=== PATIENT | female | born 1980 | race American Indian/Alaskan Native ===

== ENCOUNTER 2017-04-01 23:59 | Emergency (ER) | payer MEDICAID, OTHER ==
[2017-04-02] MEDS ORDERED: ASPIRIN PO ONE (01:40)
[2017-04-02 02:15] LABS: Hematocrit 38.4 % (30.3-42.9); Mean Corpuscular HGB Conc 34 % (30-34); Mean Corpuscular Hemoglobin 33 pg (28-32); Mean Corpuscular Volume 96 fl (79-97); Platelet Count 234 K/mm3 (140-440); Red Blood Count 3.98 M/mm3 (3.65-5.03); Red Cell Distribution Width 12.6 % (13.2-15.2)
[2017-04-02 02:16] LABS: BUN/Creatinine Ratio 10; Blood Urea Nitrogen 7 mg/dL (7-17); Calcium 8.3 mg/dL (8.4-10.2); Hemolysis Index 5
[2017-04-02 03:34] LABS: HCG Qualitative,Urine Negative (Negative)
[2017-04-02 03:37] LABS: Bilirubin,Urine NEG (Negative); Blood,Urine MOD (Negative); Color,Urine Yellow (Yellow); Mucus,Urine FEW /HPF; Protein,Urine <15 mg/dL mg/dL (Negative)
--- NOTE | 2017-04-02 04:00 | XRay Report ---
FINAL REPORT PROCEDURE: XR CHEST ROUTINE 2V TECHNIQUE: PA and lateral chest radiographs were obtained. CPT 23627 HISTORY: chest pain COMPARISON: No prior studies are available for comparison. FINDINGS: Heart: Normal. Mediastinum/Vessels: Normal. Lungs/Pleural space: Normal. Bony thorax: No acute osseous abnormality. Other: IMPRESSION: Normal examination.
[2017-04-02 04:10] LABS: Basophils % (Manual) 0 % (0.0-1.8); Total Cells Counted 100
[2017-04-02 04:11] LABS: Anisocytosis 1+; Platelet Estimate Consistent w Auto
--- NOTE | 2017-04-02 04:39 | Emergency Department Report ---
ED Chest Pain HPI - General Chief Complaint: Chest Pain Stated Complaint: SOB,LEFT ARM,LEG,BILATERAL ANKLE PAIN Time Seen by Provider: 04/02/17 04:21 Source: patient Mode of arrival: Ambulatory Limitations: No Limitations - History of Present Illness Initial Comments: Patient is a 36-year-old black female who is presenting with chest pain generalized for the last for 5 days. Patient states she gets some left arm discomfort as well this is accompanied with shortness of breath nausea. Patient states is worse when she is lying flat physician feels like she is smothering. Patient also is noted several months of lower extremity edema in her ankles however this is worsened over the last week. 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 Patient also states she has some varicose veins. Patient denies any fevers cough nausea vomiting at this time. Patient states the pain in her chest at worst is 8 out of 10 and it is controlled at the moment. - Related Data Previous Rx's Medication Instructions Recorded Last Taken Type Ibuprofen [Motrin] 800 mg PO Q8HR PRN #30 tablet 08/19/15 Unknown Rx Misoprostol [Cytotec] 400 mcg PO Q4HR #2 tablet 08/19/15 Unknown Rx oxyCODONE /ACETAMINOPHEN [Percocet 1 tab PO Q6HR PRN #20 tablet 08/19/15 Unknown Rx 5/325] Furosemide [Lasix] 20 mg PO DAILY #5 tablet 04/02/17 Unknown Rx Allergies Allergy/AdvReac Type Severity Reaction Status Date / Time No Known Allergies Allergy Unverified 12/23/14 10:28 Heart Score - HEART Score History: Slightly suspicious EKG: Normal Age: < 45 Risk factors: No known risk factors Troponin: < normal limit HEART Score: 0 ED Review of Systems ROS: Stated complaint: SOB,LEFT ARM,LEG,BILATERAL ANKLE PAIN Other details as noted in HPI Comment: All other systems reviewed and negative ED Past Medical Hx - Past Medical History Previous Medical History?: No - Surgical History Past Surgical History?: Yes Additional Surgical History: etopic w/ right Fallopian tube removed - Social History Smoking Status: Current Some Day Smoker - Medications Home Medications: Home Medications Medication Instructions Recorded Confirmed Last Taken Type Ibuprofen [Motrin] 800 mg PO Q8HR PRN #30 tablet 08/19/15 Unknown Rx Misoprostol [Cytotec] 400 mcg PO Q4HR #2 tablet 08/19/15 Unknown Rx oxyCODONE /ACETAMINOPHEN [Percocet 1 tab PO Q6HR PRN #20 tablet 08/19/15 Unknown Rx 5/325] Furosemide [Lasix] 20 mg PO DAILY #5 tablet 04/02/17 Unknown Rx ED Physical Exam - General Limitations: No Limitations General appearance: alert, in no apparent distress - Head Head exam: Present: atraumatic, normocephalic - Eye Eye exam: Present: normal appearance - ENT ENT exam: Present: mucous membranes moist - Neck Neck exam: Present: normal inspection - Respiratory Respiratory exam: Present: normal lung sounds bilaterally. Absent: respiratory distress - Cardiovascular Cardiovascular Exam: Present: regular rate, normal rhythm. Absent: systolic murmur, diastolic murmur, rubs, gallop - GI/Abdominal GI/Abdominal exam: Present: soft, normal bowel sounds - Extremities Exam Extremities exam: Present: normal inspection, pedal edema, other (patient has 1 + edema in the ankles only) - Back Exam Back exam: Present: normal inspection - Neurological Exam Neurological exam: Present: alert, oriented X3 - Psychiatric Psychiatric exam: Present: normal affect, normal mood - Skin Skin exam: Present: warm, dry, intact, normal color. Absent: rash ED Course Vital Signs 04/02/17 04/02/17 01:00 01:31 Temperature 98.7 F 98.7 F Pulse Rate 74 77 Respiratory 18 18 Rate Blood Pressure 117/73 117/73 O2 Sat by Pulse 99 99 Oximetry ED Medical Decision Making - Lab Data Result diagrams: 04/02/17 01:51 04/02/17 01:51 - EKG Data -: EKG Interpreted by Me - EKG Data Interpretation: other (AG shows sinus rhythm at a rate of 70 with normal axis normal intervals and no ST segment elevations or depressions and normal EKG, interpretation is 158) - Medical Decision Making Despite having complaints that are suggestive of congestive heart failure, which is something that the patient has looked up online, she has no physical evidence of any heart failure except for some ankle swelling. The ankle swelling is most likely secondary to her varicose veins and the fact she stands all day. Patient has no Rales present on physical exam: Sounds were very clear. Chest x-ray also shows no cardiomegaly or pulmonary vascular congestion suggestive of heart failure or systemic fluid overload. His BMP was normal patient does not have congestive heart failure at this time. Some of her chest discomfort may be secondary to anxiety from taking that because her legs are swollen and she has heart failure. Patient will follow with [facility] on Monday. Did speak with Dr. Choudhury with [facility] will Follow up with the Patient. Patient Will Be Placed on Low-Dose Lasix for Leg Swelling She Has Present and Be Discharged Home. Critical care attestation.: If time is entered above; I have spent that time in minutes in the direct care of this critically ill patient, excluding procedure time. ED Disposition Clinical Impression: Dependent edema Disposition: [id number] TO HOME OR SELFCARE Is pt being admited?: No Does the pt Need Aspirin: No Condition: Fair Instructions: Leg Edema (ED) Prescriptions: Furosemide [Lasix] 20 mg PO DAILY #5 tablet Referrals: PRIMARY CARE, [Primary Care Provider] - 3-5 Days
[2017-04-02 06:06] VITALS: BP 113/71
== END 2017-04-02 06:06 | disposition home or self-care (01) ==
LOC: ED 23:59
DX: R06.02 Shortness of breath (principal); R60.9 Edema, unspecified; R11.0 Nausea; M25.572 Pain in left ankle and joints of left foot; M25.571 Pain in right ankle and joints of right foot; F17.200 Nicotine dependence, unspecified, uncomplicated
CPT/HCPCS: 36415; 71046; 80048; 81001; 81025; 83880; 84484; 85007; 85025; 93005; 93010; 99284